=== PATIENT | female | born 1965 | race Hispanic/Latino ===

== ENCOUNTER 2018-06-05 12:59 | Emergency (ER) | payer BC ==
--- NOTE | 2018-06-05 13:18 | C.PDOC ---
History Of Present Illness 53 y/o female with no pertinent PMHx presents to the ED complaining of right hand pain s/p trauma prior to arrival. At work patient pulled out a drawer from a large file cabinet, which then began falling toward her. She extended her hands attempting to catch the cabinet, but it was too heavy, and she slid out of the way. One of the drawers hit her right wrist and forearm, causing pain to the right wrist and right thumb. Pain is described as 4/10. Otherwise she denies weakness, numbness, paresthesias, or other injury. No LOC. Time Seen by Provider: 06/05/18 13:12 Chief Complaint (Nursing): Upper Extremity Problem/Injury History Per: Patient History/Exam Limitations: no limitations Onset/Duration Of Symptoms: Mins Current Symptoms Are (Timing): Still Present Severity: Mild Pain Scale Rating Of: 4 Past Medical History Reviewed: Historical Data, Nursing Documentation, Vital Signs - Medical History PMH: No Chronic Diseases Surgical History: (x 2) Family History: States: No Known Family Hx - Social History Hx Tobacco Use: Yes Hx Alcohol Use: No Hx Substance Use: No Review Of Systems Constitutional: Negative for: Fever, Chills Cardiovascular: Negative for: Chest Pain Respiratory: Negative for: Shortness of Breath Gastrointestinal: Negative for: Nausea, Vomiting Musculoskeletal: Positive for: Hand Pain (right forearm/wrist, and right thumb) Skin: Positive for: Lesions (abrasion to right forearm), Bruising Neurological: Negative for: Weakness, Numbness, Headache Physical Exam - Physical Exam Appears: Non-toxic, No Acute Distress Skin: Warm, Dry, Ecchymosis (to the volar aspect of right forearm) Head: Atraumatic, Normacephalic Eye(s): bilateral: Normal Inspection Neck: Normal ROM Chest: Symmetrical Respiratory: No Accessory Muscle Use, Other (Speaking in full sentences) Extremity: Normal ROM (with FROM of right wrist and all digits), Tenderness (Point tenderness to the volar right wrist, just proximal to the thenar eminence), Capillary Refill (less than 2 sec), No Swelling, Other (Circular erythematous abrasion noted to volar right wrist; Neurovascularly intact) Pulses: Left Radial: Normal, Right Radial: Normal Neurological/Psych: Oriented x3, Normal Speech, Normal Motor, Normal Sensation ED Course And Treatment O2 Sat by Pulse Oximetry: 100 Pulse Ox Interpretation: Normal - Other Rad R thumb XR X-Ray: Read By Radiologist Interpretation: Accession No. : [id number]. Patient Name / ID : YOSELIN CALIX / [id number]. Exam Date : 06/05/2018 13:44:06 ( Approved ). Study Comment : Sex / Age : F / 53Y. Creator : Serina Ba. Dictator : Serina Ba. Regulatory Lead : Color Laboratory Technician : Serina Louis. Approver2 : Report Date : 06/05/2018 14:13:28. My Comment : . Date of service: 06/05/2018. PROCEDURE: Right Thumb radiographs. HISTORY: s/p trauma. COMPARISON: None. TECHNIQUE: AP radiograph of the right hand, as well as spot oblique and lateral images of thumb were obtained. FINDINGS: RIGHT THUMB: Normal right thumb, without fracture or focal lesion. Remainder of the right hand (as seen on the AP view) grossly unremarkable. JOINTS: Mild arthrosis cystic changes in the trapezium. Trace spurring of the 1st interphalangeal joint. SOFT TISSUES: Normal. OTHER FINDINGS: None. IMPRESSION: No fracture or dislocation. Degenerative changes as above. R wrist XR X-Ray: Read By Radiologist Interpretation: Accession No. : [id number]. Patient Name / ID : YOSELIN CALIX / [id number]. Exam Date : 06/05/2018 13:40:38 ( Approved ). Study Comment : Sex / Age : F / 53Y. Creator : Serina Ba. Dictator : Serina Ba. Regulatory Lead : Color Laboratory Technician : Serina Louis. Approver2 : Report Date : 06/05/2018 14:15:43. My Comment : . Date of service: 06/05/2018. PROCEDURE: Right Wrist Radiographs. . HISTORY: s/p trauma. COMPARISON: None. FINDINGS: BONES: No fracture. Benign cystic change in the trapezium. JOINTS: No dislocation. No prominent spurring seen. SOFT TISSUES: Normal. OTHER FINDINGS: None. IMPRESSION: No fracture or dislocation. Nonspecific benign-appearing cystic change involving the trapezium as above. R forearm XR X-Ray: Read By Radiologist Interpretation: Accession No. : [id number]. Patient Name / ID : YOSELIN CALIX / [id number]. Exam Date : 06/05/2018 13:36:56 ( Approved ). Study Comment : Sex / Age : F / 53Y. Creator : Serina Ba. Dictator : Serina Ba. Regulatory Lead : Color Laboratory Technician : Serina Luois. Approver2 : Report Date : 06/05/2018 14:20:46. My Comment : . PROCEDURE: Radiographs of the Right Forearm. HISTORY: s/p trauma. COMPARISON: None available. TECHNIQUE: Frontal and lateral views obtained. 2 views obtained. FINDINGS: BONES: No fracture or destructive lesion. Small exostosis medial humeral epicondyle-likely type effects from contiguous ligament and/or tendon. JOINT SPACES: Unremarkable. OTHER FINDINGS: None. IMPRESSION: No fracture or lytic lesion. Other findings as above. Medical Decision Making Medical Decision Making: Impression: Hand pain s/p trauma Plan: - Right hand x-ray - Right wrist x-ray - Right forearm x-ray - Tetanus booster administered Imaging reviewed and discussed with patient. Follow up with Ortho or PMD regarding findings but negative for dislocation and fractures Motrin as needed for pain Patient verbalizes understanding and is in agreement with plan. Patient is stable for discharge. Disposition Counseled Patient/Family Regarding: Studies Performed, Diagnosis, Need For Followup, Rx Given - Disposition Referrals: [facility] [Outside] Disposition: HOME/ ROUTINE Disposition Time: 14:15 Condition: STABLE Additional Instructions: Follow up with PMD or Ortho in 1-2 days Take Motrin as needed for pain Return to ED if symptoms worsen Prescriptions: Ibuprofen [Motrin] 400 mg PO Q6 PRN #30 tab PRN Reason: Pain, Moderate (4-7) Instructions: Muscle and Bone Pain (DC), Contusion (DC) Forms: [employer] (Mongolian) - Clinical Impression Clinical Impression: Wrist contusion, Right arm pain - PA / INSURANCE SOLICITOR / Resident Statement MD/DO has reviewed & agrees with the documentation as recorded. - Scribe Statement The provider has reviewed the documentation as recorded by the Mengibtaryn Chavira All medical record entries made by the Humble were at my direction and personally dictated by me. I have reviewed the chart and agree that the record accurately reflects my personal performance of the history, physical exam, medical decision making, and the department course for this patient. I have also personally directed, reviewed, and agree with the discharge instructions and disposition.
[2018-06-05 13:19] VITALS: BP 114/77; PULSE 91; RESP 20; TEMP 98.7; O2SAT 100
[2018-06-05] MEDS ORDERED: Tdap Vaccine 0.5 ml Vial (10-64 yrs) IM ONE ×2 (13:20→13:36)
--- NOTE | 2018-06-05 14:17 | RAD ---
Date of service: 06/05/2018 PROCEDURE: Right Thumb radiographs. HISTORY: s/p trauma COMPARISON: None. TECHNIQUE: AP radiograph of the right hand, as well as spot oblique and lateral images of thumb were obtained. FINDINGS: RIGHT THUMB: Normal right thumb, without fracture or focal lesion. Remainder of the right hand (as seen on the AP view) grossly unremarkable. JOINTS: Mild arthrosis cystic changes in the trapezium. Trace spurring of the 1st interphalangeal joint. SOFT TISSUES: Normal. OTHER FINDINGS: None. IMPRESSION: No fracture or dislocation. Degenerative changes as above..
--- NOTE | 2018-06-05 14:19 | RAD ---
Date of service: 06/05/2018 PROCEDURE: Right Wrist Radiographs. HISTORY: s/p trauma COMPARISON: None. FINDINGS: BONES: No fracture. Benign cystic change in the trapezium JOINTS: No dislocation. No prominent spurring seen. SOFT TISSUES: Normal. OTHER FINDINGS: None. IMPRESSION: No fracture or dislocation. Nonspecific benign-appearing cystic change involving the trapezium as above.
--- NOTE | 2018-06-05 14:24 | RAD ---
PROCEDURE: Radiographs of the Right Forearm HISTORY: s/p trauma COMPARISON: None available. TECHNIQUE: Frontal and lateral views obtained. 2 views obtained. FINDINGS: BONES: No fracture or destructive lesion. Small exostosis medial humeral epicondyle-likely type effects from contiguous ligament and/or tendon. JOINT SPACES: Unremarkable. OTHER FINDINGS: None. IMPRESSION: No fracture or lytic lesion. Other findings as above.
== END 2018-06-05 14:25 | disposition home or self-care (01) ==
LOC: C.ER 12:59
DX: S60.211A Contusion of right wrist, initial encounter (principal); W22.8XXA Striking against or struck by other objects, initial encounter; Y92.89 Other specified places as the place of occurrence of the external cause; Y99.0 Civilian activity done for income or pay; M79.601 Pain in right arm